=== PATIENT | female | born 1990 | race Caucasian/White ===

== ENCOUNTER 2020-12-22 06:24 | Emergency (ER) | payer OTHER ==
[~2020-12-22] VITALS: Ht 160 cm; Wt 68.0 kg
--- NOTE | 2020-12-22 06:43 | NUR ---
PATIENT CAME TO ER BED 9 C/O NECK PAIN SINCE YESTERDAY W/ STIFFNESS. PATIENT STATES THAT SHE WORKED OUT A FEW DAYS AGO AND WAS FINE. PATIENT WOKE UP YESTERDAY MORNING AND FELT PAIN GOING DOWN HER SPINE FROM HER NECK W/ LIMITED RANGE OF MOTION. PATIENT IS ALERT/ ORIENTED x4. DENIES SHORTNESS OF BREATH. CONNECTED TO THE MONITOR.
--- NOTE | 2020-12-22 06:57 | NUR ---
APPLIED TANNER BANDAGING AROUND LEFT SHOULDER.
[2020-12-22] MEDS ORDERED: HYDROCODONE/APAP 5/325MG TABLET ONE (06:59)
[2020-12-22] MEDS ORDERED: HYDROCODONE/APAP 5/325MG TABLET PO ONE (07:00)
[2020-12-22] MEDS ORDERED: IBUP-1955 PO (07:06)
[2020-12-22] MEDS ORDERED: CYCL5TAB PO (07:06)
--- NOTE | 2020-12-22 07:16 | NUR ---
Patient discharged to home in stable condition. Written and verbal after care instructions given. Patient verbalizes understanding of instruction.
[2020-12-22 07:17] VITALS: BP 123/72
== END 2020-12-22 07:17 | disposition home or self-care (01) ==
LOC: ER 06:26
DX: S29.012A Strain of muscle and tendon of back wall of thorax, initial encounter (principal); X58.XXXA Exposure to other specified factors, initial encounter; Y93.89 Activity, other specified; Y92.89 Other specified places as the place of occurrence of the external cause; Y99.8 Other external cause status